=== PATIENT | male | born 1940 | race Caucasian/White ===

== ENCOUNTER 2024-09-02 15:11 | Emergency (ER) | payer MEDICARE, BC ==
[2024-09-02 15:26] VITALS: BP 146/92; PULSE 101; RESP 20; TEMP 98.9
--- NOTE | 2024-09-02 16:09 | US ---
EXAMINATION TYPE: US venous doppler duplex LE LT DATE OF EXAM: 09/02/2024 4:01 PM COMPARISON: NONE CLINICAL INDICATION: Male, 84 years old with history of pain, swelling; Left leg pain TECHNIQUE: The lower extremity deep venous system is examined utilizing real time linear array sonog aleisha with graded compression, color doppler sonography, and spectral doppler. SIDE PERFORMED: Left FINDINGS: VESSELS IMAGED: Common Femoral Vein Deep Femoral Vein Greater Saphenous Vein * Femoral Vein Popliteal Vein Small Saphenous Vein * Proximal Calf Veins (* superficial vessels) Left Leg: Appears negative for DVT IMPRESSION: 1. Left lower extremity ultrasound negative for deep venous thrombosis. [facility], , 09/02/2024 4:07 PM
--- NOTE | 2024-09-02 16:28 | ED ---
General Adult HPI - General Chief complaint: Extremity Problem,Nontraumatic Stated complaint: possible blood clot Time Seen by Provider: 09/02/24 16:11 Source: patient, family, RN notes reviewed, old records reviewed Mode of arrival: wheelchair Limitations: no limitations - History of Present Illness Initial comments: 84-year-old male presenting for evaluation of left calf pain and swelling. Patient went to physical therapy today and they noted that his left calf was swollen and painful. He was sent to rule out DVT. Patient is on Pradaxa. He is going to physical therapy for back pain with related radicular pain into both of his legs. No recent fall or trauma. No fever. - Related Data Home Medications Medication Instructions Recorded Confirmed Amiodarone [Cordarone] 200 mg PO DAILY 04/04/14 04/04/14 Atorvastatin [Lipitor] 40 mg PO DAILY 04/04/14 04/04/14 Dabigatran [Pradaxa] 150 mg PO BID 04/04/14 04/04/14 Glimepiride [Amaryl] 2 mg PO DAILY 04/04/14 04/04/14 Insulin Glargine [Lantus] 40 unit SQ HS 04/04/14 04/04/14 Magnesium Gluconate [Magonate] 500 mg PO DAILY 04/04/14 04/04/14 NIFEdipine [Procardia XL] 60 mg PO DAILY 04/04/14 04/04/14 Tamsulosin [Flomax] 0.4 mg PO DAILY 04/04/14 04/04/14 atenoloL [Tenormin] 50 mg PO DAILY 04/04/14 04/04/14 lisinopriL 40 mg PO BID 04/04/14 04/04/14 metFORMIN HCL [Glucophage] 850 mg PO BID 04/04/14 04/04/14 Previous Rx's Medication Instructions Recorded Indomethacin [Indocin] 50 mg PO TID PRN #30 capsule 04/04/14 Acetaminophen-Codeine 300-30mg 1 tab PO Q6H PRN 3 Days #12 tablet 09/02/24 [Tylenol w/codeine #3] Allergies Allergy/AdvReac Type Severity Reaction Status Date / Time No Known Allergies Allergy Verified 09/02/24 15:17 Review of Systems ROS Statement: Those systems with pertinent positive or pertinent negative responses have been documented in the HPI. ROS Other: All systems not noted in ROS Statement are negative. Past Medical History Past Medical History: Coronary Artery Disease (CAD), Heart Failure, CVA/TIA, Diabetes Mellitus, Hyperlipidemia, Hypertension, Prostate Disorder History of Any Multi-Drug Resistant Organisms: None Reported Past Surgical History: Orthopedic Surgery Past Psychological History: No Psychological Hx Reported Smoking Status: Former smoker Past Alcohol Use History: None Reported Past Drug Use History: None Reported General Exam Limitations: no limitations General appearance: alert, in no apparent distress Head exam: Present: atraumatic, normocephalic Eye exam: Present: normal appearance, PERRL ENT exam: Present: normal exam Neck exam: Present: normal inspection. Absent: tenderness Respiratory exam: Present: rhonchi (Rhonchi). Absent: respiratory distress, wheezes Cardiovascular Exam: Present: regular rate, normal rhythm GI/Abdominal exam: Present: soft. Absent: distended, tenderness, guarding Extremities exam: Present: pedal edema (Bilateral pedal edema worse on the left). Absent: calf tenderness Neurological exam: Present: alert, oriented X3 Psychiatric exam: Present: normal affect, normal mood Skin exam: Present: warm, dry, intact, normal color Course Vital Signs 09/02/24 15:18 Temperature 98.9 F Pulse Rate 101 H Respiratory 20 Rate Blood Pressure 146/92 O2 Sat by Pulse 95 Oximetry Medical Decision Making - Medical Decision Making Was pt. sent in by a medical professional or institution (NILDA Lorenz, [employer] MANAGER, urgent care, hospital, or fdc...) When possible be specific @ -No Did you speak to anyone other than the patient for history (EMS, parent, family, police, friend...)? What history was obtained from this source @Patient's 's Did you review nursing and triage notes (agree or disagree)? Why? @ -I reviewed and agree with nursing and triage notes Were old charts reviewed (outside hosp., previous admission, EMS record, old EKG, old radiological studies, urgent care reports/EKG's, fdc records)? Report findings @ -No old charts were reviewed Differential Musculoskeletal Muscular strain, contusion, ligament sprain, fracture, arthritis, septic arthritis, bursitis, cellulitis, muscle spasm, nerve compression, DVT, arterial occlusion, herpes zoster, electrolyte abnormality, tumor.... This is not meant to be in all inclusive list EKG interpreted by me (3pts min.). @ -As above X-rays interpreted by me (1pt min.). @ -None done CT interpreted by me (1pt min.). @ -None done U/S interpreted by me (1pt. min.). @ -Ultra sound negative for DVT in the left lower extremity What testing was considered but not performed or refused? (CT, X-rays, U/S, labs)? Why? @ -None What meds were considered but not given or refused? Why? @ -None Did you discuss the management of the patient with other professionals (professionals i.e. , PA, [employer] MANAGER, lab, RT, psych nurse, social media specialist, attache, teacher, conservation enforcement officer, case management coordinator)? Give summary @ -No Was smoking cessation discussed for >3mins.? @ -No Was critical care preformed (if so, how long)? @ -No Were there social determinants of health that impacted care today? How? (Homelessness, low income, unemployed, alcoholism, drug addiction, transportation, low edu. Level, literacy, decrease access to med. care, penitentiary, rehab)? @ -No Was there de-escalation of care discussed even if they declined (Discuss DNR or withdrawal of care, Hospice)? DNR status @ -No What co-morbidities impacted this encounter? (DM, HTN, Smoking, COPD, CAD, Cancer, CVA, ARF, Chemo, Hep., AIDS, mental health diagnosis, sleep apnea, morbid obesity)? @ -None Was patient admitted / discharged? Hospital course, mention meds given and route, prescriptions, significant lab abnormalities, going to OR and other pertinent info. @ -84-year-old male sent to the emergency department to rule out DVT in the left lower extremity, ultrasound is performed and is negative for DVT. Patient will follow-up with his primary care provider. Return parameters discussed. Undiagnosed new problem with uncertain prognosis? @ -No Drug Therapy requiring intensive monitoring for toxicity (Heparin, Nitro, Insulin, Cardizem)? @ -No Were any procedures done? @ -No Diagnosis/symptom? @ leg pain Acute, or Chronic, or Acute on Chronic? @ -Acute Uncomplicated (without systemic symptoms) or Complicated (systemic symptoms)? @ -Default Side effects of treatment? @ -No Exacerbation, Progression, or Severe Exacerbation? @ -No Poses a threat to life or bodily function? How? (Chest pain, USA, ID, pneumonia, PE, COPD, DKA, ARF, appy, cholecystitis, CVA, Diverticulitis, Homicidal, Suicidal, threat to staff... and all critical care pts) @ -No Disposition Clinical Impression: Pain of left calf Disposition: HOME SELF-CARE Condition: Good Instructions (If sedation given, give patient instructions): Leg Pain (ED) Prescriptions: Acetaminophen-Codeine 300-30mg [Tylenol w/codeine #3] 1 tab PO Q6H PRN 3 Days #12 tablet PRN Reason: Pain Is patient prescribed a controlled substance at d/c from ED?: No Referrals: Anant Bernal MD [Primary Care Provider] - 1-2 days Time of Disposition: 16:27
== END 2024-09-02 16:48 | disposition home or self-care (01) ==
LOC: EC 15:11
DX: M79.662 Pain in left lower leg (principal); Z87.891 Personal history of nicotine dependence
CPT/HCPCS: 99283